=== PATIENT | female | born 1990 | race Hispanic/Latino ===

== ENCOUNTER 2021-06-21 09:08 | Emergency (ER) | payer OTHER ==
[~2021-06-21] VITALS: Ht 157.5 cm; Wt 93.0 kg
[2021-06-21] MEDS ORDERED: PREDNISONE 20 MG TABLET PO SCH (11:00)
[2021-06-21] MEDS ORDERED: BENZ-39 PO (11:42)
[2021-06-21] MEDS ORDERED: PRED20TA3 PO (11:42)
[2021-06-21] MEDS ORDERED: ALBU8.5H8 IH (11:43)
[2021-06-21 12:15] VITALS: BP 130/86
== END 2021-06-21 12:01 | disposition home or self-care (01) ==
LOC: EDH 09:08
DX: J10.1 Influenza due to other identified influenza virus with other respiratory manifestations (principal); Z20.822 Contact with and (suspected) exposure to COVID-19; J45.909 Unspecified asthma, uncomplicated; Z79.52 Long term (current) use of systemic steroids; Z79.899 Other long term (current) drug therapy
CPT/HCPCS: 87635; 87804 ×2; 87880; 99283; C9803